=== PATIENT | male | born 1970 | race Caucasian/White ===

== ENCOUNTER 2017-04-02 19:45 | Emergency (ER) | payer MEDICAID ==
--- NOTE | 2017-04-02 19:50 | EDPHY ---
H & P Time Seen by Provider: 04/02/17 19:46 HPI/ROS: CHIEF COMPLAINT: Intoxication HISTORY OF PRESENT ILLNESS: The patient is a 39-year-old homeless man from [facility] for intoxication. He is unable to ambulate. 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 He denies other complaints. REVIEW OF SYSTEMS: Constitutional: denies: chills, fever, recent illness, recent injury EENTM: denies: blurred vision, double vision, nose congestion Respiratory: denies: cough, shortness of breath Cardiac: denies: chest pain, irregular heart rate, lightheadedness, palpitations Gastrointestinal/Abdominal: denies: abdominal pain, diarrhea, nausea, vomiting, blood streaked stools Genitourinary: denies: dysuria, frequency, hematuria, pain Musculoskeletal: denies: joint pain, muscle pain Skin: denies: lesions, rash, jaundice, bruising Neurological: denies: headache, numbness, paresthesia, tingling, dizziness, weakness Hematologic/Lymphatic: denies: blood clots, easy bleeding, easy bruising Immunologic/allergic: denies: HIV/AIDS, transplant Physical Exam General Appearance: WD/WN, no apparent distress, obtunded (But arousable with painful stimulation) EENT: PERRL/EOMI, normal ENT inspection, TMs normal, pharynx normal Neck: non-tender, full range of motion, supple, normal inspection Respiratory: chest non-tender, lungs clear, normal breath sounds Cardiac/Chest: normal peripheral pulses, regular rate, rhythm, P Peripheral Pulses: 2+: carotid (R), carotid (L), femoral (R), femoral (L), dorsalis-pedis (R), dorsalis-pedis (L) Abdomen: normal bowel sounds, non-tender, soft Extremities: normal range of motion, non-tender, normal inspection, normal capillary refill Neurological: calm, retail coverage merchandiser II-XII NML as tested. No: alert (Somnolent) Appearance: appropriate appearance, appropriate insight, neat, denies illness Behavior/Eye Contact/Speech: cooperative, decreased rate of speech Thoughts/Hallucinations: normal thought pattern, no apparent hallucination Skin: normal color, warm/dry Source: Patient, EMS Exam Limitations: Intoxication - Medical/Surgical History Hx Asthma: No Hx Chronic Respiratory Disease: No Hx Diabetes: No Hx Cardiac Disease: No Hx Renal Disease: No Hx Alcoholism: Yes - Family History Significant Family History: No pertinent family hx - Social History Alcohol Use: Heavy Drug Use: Marijuana Constitutional: Initial Vital Signs Temperature (C) 36.4 C 04/02/17 19:45 Heart Rate 88 04/02/17 19:45 Respiratory Rate 16 04/02/17 19:45 Blood Pressure 114/79 04/02/17 19:45 O2 Sat (%) 100 04/02/17 19:45 O2 Delivery Mode Room Air O2 (L/minute) 2 Allergies/Adverse Reactions: TD Allergy (Uncoded 04/02/17 19:55) Home Medications: Medication Instructions Recorded Hydrocodone Bit/Acetaminophen 1 each PO Q4-6PRN PRN #20 tablet 09/21/09 [Vicodin 5-500 Tablet] Paxil 09/21/09 Medical Decision Making ED Course/Re-evaluation: 11:00 p.m. the patient is increasingly sober. He is able to ambulate. Will discharge to the [facility]. Differential Diagnosis: Partial list of the Differential diagnosis considered include but were not limited to; intoxication, polysubstance abuse and although unlikely based on the history and physical exam, I also considered head injury, neck injury, infection, seizure, CVA. - Data Points Medications Given: Discontinued Medications Chlordiazepoxide (Librium 25 Mg Prepack#6) 1 btl TAKEHOME EDNOW ONE Stop: 04/02/17 22:38 Last Admin: 04/02/17 22:50 Dose: 1 btl Departure - Departure Disposition: Home, Routine, Self-Care Clinical Impression: Alcoholic intoxication Qualifiers: Complication of substance-induced condition: uncomplicated Qualified Code(s): F10.920 - Alcohol use, unspecified with intoxication, uncomplicated Alcohol dependence Qualifiers: Substance use status: uncomplicated Qualified Code(s): F10.20 - Alcohol dependence, uncomplicated Condition: Fair Instructions: Chlordiazepoxide/Clidinium (By mouth), Alcohol Intoxication (ED) , Abuse of Alcohol (ED) Additional Instructions: TO [facility]. STOP DRINKING ALCOHOL Referrals: NONE *PRIMARY CARE P,. [Primary Care Provider] - As per Instructions
[2017-04-02 19:55] VITALS: TEMP 97.5
[2017-04-02 21:49] VITALS: O2SAT 98
[2017-04-02] MEDS ORDERED: CHLORDIAZEPOXIDE 25MG PREPK#6 BTL TAKEHOME ONE (22:37)
[2017-04-02 23:09] VITALS: BP 138/79; PULSE 96; RESP 16
== END 2017-04-02 23:04 | disposition home or self-care (01) ==
LOC: EDUNIT#
DX: F10.20 Alcohol dependence, uncomplicated (principal)

== ENCOUNTER 2017-04-14 21:01 | Emergency (ER) | payer MEDICAID ==
[2017-04-14 21:31] LABS: PLATELET COUNT 187 10^3/uL (150-400)
--- NOTE | 2017-04-14 22:31 | EDPHY ---
General - History Smoking Status: Current every day smoker Narrative: 0200 care assumed from [facility] pending sober mental health evaluation. 0700 patient has been sleeping overnight. No issues during my care. Patient signed out to Dr. Pretty pending sober mental health evaluation. (Yosvany Lloyd) CHIEF COMPLAINT: M1 HISTORY OF PRESENT ILLNESS: Patient arrives by EMS on an M1 hold [place] [employer]. He was reportedly suicidal with a plan of trying to get the police department to shoot him. He was laying on the ground under a bridge when [place] Police was reportedly contacted for the patient's safety. On a well check, the patient reportedly became suicidal and aggressive toward the police and attempt to get them to shoot him. He says that he was feeling suicidal but not at this time. He says he has been depressed. He will not provide any other information to me. PSYCHIATRIC DIAGNOSES: Denies PRIOR PSYCHIATRIC EVALUATIONS: Denies M1/DETAINER: [place] [employer] REVIEW OF SYSTEMS: Ten systems reviewed and are negative unless otherwise noted in the HPI EXAMINATION General Appearance: Alert, no distress, unkempt Head: normocephalic, atraumatic Eyes: Pupils equal and round, no conjunctival pallor or injection ENT, Mouth: Mucous membranes moist Neck: Normal inspection, supple, non-tender Respiratory: No retractions or distress Cardiovascular: Regular rate. Good signs of perfusion Gastrointestinal: Abdomen is soft and nontender Back: non-tender, no bony abnormalities Neurological: A&O, nonfocal, normal gait Skin: Warm and dry, no rash Extremities: Nontender, no pedal edema Psychiatric: Depressed mood and flat affect. Admits to suicidal ideation earlier this evening. Denies suicidal ideation at this time. Admits to alcohol ingestion. Denies drug use. DIFFERENTIAL DIAGNOSES: Including but not limited to suicidal ideation, depression, alcohol dependency, alcohol intoxication, homelessness MDM: 9:30 p.m. M1 for suicidal ideation. Patient's plan was to get the police to shoot him. Patient denies any plan of harm at this time. Resting comfortably. Strong odor of alcohol. Laboratory studies pending. 9:50 p.m. Patient re-evaluated. Resting comfortably. CBC unremarkable. 10:30 p.m. CBC unremarkable. Chemistry unremarkable with exception of a markedly elevated serum alcohol level. The patient will be in this emergency department overnight as he cannot be cleared at this time due to alcohol level. 12:30 a.m. Patient still awaiting evaluation due to elevated blood alcohol level. 2:00 a.m. Patient resting comfortably. No acute distress. At this time I have discussed the case with Dr. Lloyd. He will assume care the patient this time. Patient is still pending evaluation pain SUPERVISION: Patient was independently examined, but I discussed the case with my secondary supervising physician Dr. Lloyd. (Aung Haynes) Medical Decision Making: I assumed care of the patient at 0700. The patient remained stable throughout my stay in the emergency department. His psychiatric disposition is still pending. He will be turned over to Dr. Salty Kuhn at shift change. (Mono Pretty) Care assumed 1445 from [facility], plan for evaluation when sober. 1527: had evaluation, not suicidal, cab to half-way, can do clinic intake tomorrow. Recommendation of Dr. Escalona and brand activation manager. (Salty Kuhn) I did not see this patient while he was in the emergency department. However his care was discussed with the PA while the patient was in the department. I agree with treatment plan and management (Josue Coleman) - Objective Vital Signs: Initial Vital Signs Temperature (C) 97.7 F 04/14/17 21:10 Heart Rate 84 04/14/17 21:10 Respiratory Rate 18 04/14/17 21:10 Blood Pressure 103/69 04/14/17 21:10 O2 Sat (%) 93 04/14/17 21:10 O2 Delivery Mode Room Air Allergies/Adverse Reactions: TD Allergy (Uncoded 04/14/17 21:24) Home Medications: Medication Instructions Recorded Hydrocodone Bit/Acetaminophen 1 each PO Q4-6PRN PRN #20 tablet 09/21/09 [Vicodin 5-500 Tablet] Paxil 09/21/09 Laboratory Results: Laboratory Results 04/14/17 21:20 04/14/17 21:20 04/15/17 07:20 Urine Opiates Screen NEGATIVE (NEGATIVE) Urine Barbiturates NEGATIVE (NEGATIVE) Ur Phencyclidine Scrn NEGATIVE (NEGATIVE) Ur Amphetamine Screen NEGATIVE (NEGATIVE) U Benzodiazepines Scrn NEGATIVE (NEGATIVE) Urine Cocaine Screen NEGATIVE (NEGATIVE) U Marijuana (THC) Screen NEGATIVE (NEGATIVE) Medications Given: Discontinued Medications Lorazepam (Ativan) 1 mg PO EDNOW ONE Stop: 04/15/17 14:06 Last Admin: 04/15/17 14:10 Dose: 1 mg Departure - Departure Disposition: Home, Routine, Self-Care Clinical Impression: Alcohol intoxication Qualifiers: Complication of substance-induced condition: uncomplicated Qualified Code(s): F10.920 - Alcohol use, unspecified with intoxication, uncomplicated Condition: Good Instructions: Alcohol Intoxication (ED) Referrals: Lalo Salazar MD [Medical Doctor] - As per Instructions [facility],. [Clinic] - As per Instructions [facility],. [Clinic] - As per Instructions
[2017-04-15] MEDS ORDERED: LORazepam 1 MG TAB PO ONE (14:05)
--- NOTE | 2017-04-15 14:59 | ASMTLACE ---
DILSHAD Acuity / Level of Answers: No Care: Did the patient have an inpatient admission? # of Emergency department Answers: 1-2 visits in the last 6 months Social determinants Answers: History of substance abuse (ETHO, street drugs, prescription drugs, etc.) Homelessness (street, snf) Mental health diagnosis (anxiety, depression, pers onality disorders, etc.) Lack of community resources and/or lack of social support (no pcp, lives alone, transportation, dawson d) Score: 14 Date Signed: 04/15/2017 02:59 PM Electronically Signed By:Shanel Zhu RN
[2017-04-15 15:56] VITALS: BP 164/89; PULSE 102; RESP 16; TEMP 98.4; O2SAT 94
== END 2017-04-15 15:54 | disposition home or self-care (01) ==
DX: F10.920 Alcohol use, unspecified with intoxication, uncomplicated (principal); F17.200 Nicotine dependence, unspecified, uncomplicated
CPT/HCPCS: 80305; G0480

== ENCOUNTER 2017-05-07 20:14 | Emergency (ER) | payer MEDICAID ==
--- NOTE | 2017-05-07 20:18 | EDPHY ---
H & P - Medical/Surgical History Hx Asthma: No Hx Chronic Respiratory Disease: No Hx Diabetes: No Hx Cardiac Disease: No Hx Renal Disease: No Hx Cirrhosis: No Hx Alcoholism: Yes Hx HIV/AIDS: No Hx Splenectomy or Spleen Trauma: No Other PMH: BROKEN JAW, ETOH ABUSE , CHI - Social History Smoking Status: Current every day smoker Time Seen by Provider: 05/07/17 20:18 Constitutional: Initial Vital Signs Temperature (C) 36.5 C 05/07/17 20:25 Heart Rate 91 05/07/17 20:25 Respiratory Rate 20 05/07/17 20:25 Blood Pressure 109/66 05/07/17 20:25 O2 Sat (%) 94 05/07/17 20:25 O2 Delivery Mode Room Air Allergies/Adverse Reactions: TD Allergy (Uncoded 04/14/17 21:24) Home Medications: Medication Instructions Recorded Hydrocodone Bit/Acetaminophen 1 each PO Q4-6PRN PRN #20 tablet 09/21/09 [Vicodin 5-500 Tablet] Paxil 09/21/09 Medical Decision Making ED Course/Re-evaluation: CHIEF COMPLAINT: Alcohol intoxication. HISTORY OF PRESENT ILLNESS: The patient is a chronic alcoholic living on the street. Patient drinks on a daily basis and obtains whatever alcohol is available. Patient was found by bystanders who called EMS system. Patient has had multiple ER visits over the last several years for the same complaint. Patient denies any injuries denies loss of consciousness denies any recent trauma. Patient denies co-ingestion. Patient denies suicidal or homicidal behavior. REVIEW OF SYSTEMS: A 10 point review of systems was performed and is negative with the exception of the elements mentioned in the history of present illness. PHYSICAL EXAM: General Appearance: Alert, well hydrated, appropriate, and non-toxic appearing. Head: Atraumatic without scalp tenderness or obvious injury Eyes: Pupils equal, round, reactive to light and accommodation, EOMI, no trauma , no injection. Ears: Clear bilaterally, no perforation, normal landmarks Nose: Atraumatic, no rhinorrhea, clear. Throat: There is no erythema or exudates, no lesions, normal tonsils, mucus membranes moist. Neck: Supple, 2+ carotid upstroke, nontender, no lymphadenopathy. Respiratory: No retractions, no distress, no wheezes, and no accessory muscle use. Lungs are clear to auscultation bilaterally. Cardiovascular: Regular rate and rhythm, no murmurs, rubs, or gallops. Bilateral carotid, radial, dorsalis pedis, and posterior tibial pulses intact. Good capillary refill all extremities. Gastrointestinal: Abdomen is soft, nontender, non-distended, no masses, no rebound, no guarding, no peritoneal signs. Musculoskeletal: Normal active ROM of all extremities, atraumatic. Neurological: Alert, appropriate, and interactive. The patient has normal DTRs and non-focal cranial nerves, motor, sensory, and cerebellar exam. Skin: No rashes, good turgor, no nodules on palpation. PAST MEDICAL HISTORY: Alcohol abuse PAST SURGICAL HISTORY: Noncontributory SOCIAL HISTORY: Single, unemployed, homeless, abuses alcohol drugs and tobacco DIFFERENTIAL DIAGNOSIS: MEDICAL DECISION MAKING: I serially examined this patient since the patient's arrival here in the emergency department. The patient continues to become more and more sober with each examination. I serially questioned the patient and the patient's story given initially has not changed. The patient still denies any trauma, any head injury, and any illicit drug use. At this point, the patient is walking the department freely and is clinically sober. We're discharging the patient to the [facility] in stable condition. (Mata Blum) Other Provider: 2200 care assumed by me from Dr. Blum. Patient is here intoxicated. He needs to clear more of his alcohol before he is cleared for the [facility]. 2355 Patient is now awake and appropriate. Ambulating unassisted to the bathroom. No current complaints. Patient is tolerating oral fluids. Patient is ready for [facility] to the [facility]. (Yosvany Lloyd) - Data Points Medications Given: Discontinued Medications Chlordiazepoxide (Librium 25 Mg Prepack#6) 1 btl TAKEHOME EDNOW ONE Stop: 05/07/17 23:57 Last Admin: 05/07/17 23:58 Dose: 1 btl Departure - Departure Disposition: Home, Routine, Self-Care Clinical Impression: Alcoholic intoxication Qualifiers: Complication of substance-induced condition: uncomplicated Qualified Code(s): F10.920 - Alcohol use, unspecified with intoxication, uncomplicated Alcohol dependence Qualifiers: Substance use status: uncomplicated Qualified Code(s): F10.20 - Alcohol dependence, uncomplicated Condition: Fair Instructions: Alcohol Intoxication (ED), Alcohol Dependence (ED) Referrals: NONE *PRIMARY CARE P,. [Primary Care Provider] - As per Instructions Report Scribed for: Mata Blum Report Scribed by: Sonal Schulz Date of Report: 05/07/17 Time of Report: 20:21
[2017-05-07 20:28] VITALS: O2SAT 94
[2017-05-07 23:47] VITALS: BP 137/92; PULSE 107; RESP 18; TEMP 98.2
[2017-05-07] MEDS ORDERED: CHLORDIAZEPOXIDE 25MG PREPK#6 BTL TAKEHOME ONE (23:56)
== END 2017-05-08 00:08 | disposition home or self-care (01) ==
LOC: EDUNIT#
DX: F10.920 Alcohol use, unspecified with intoxication, uncomplicated (principal); F17.200 Nicotine dependence, unspecified, uncomplicated

== ENCOUNTER 2017-06-14 00:37 | Emergency (ER) | payer MEDICAID ==
[2017-06-14] MEDS ORDERED: chlordiazePOXIDE 25 MG CAP PO ONE ×2 (01:03→01:14)
[2017-06-14] MEDS ORDERED: PERMETHRIN 5% 60 GM CREAM TP ONE (01:11)
[2017-06-14] MEDS ORDERED: chlordiazePOXIDE 25 MG CAP ONE (01:13)
--- NOTE | 2017-06-14 01:44 | EDPHY ---
H & P Stated Complaint: etoh withdrawal Time Seen by Provider: 06/14/17 00:55 HPI/ROS: HPI The patient presents with concern for alcohol withdrawal, brought in by ambulance after he approached them in a parking lot. The patient's last drink was at noon any drinks about a pt of hard alcohol a day. He is feeling anxious though denies any tremor, vomiting, dizziness, seizures. He has been feeling this way for the last several hours. He said he stopped drinking because he ran out of money to purchase alcohol. He denies any injuries. He has [facility] before and is willing to return. He also complains of a rash she has had for the last several weeks. He was previously seen and started on prednisone without any improvement in this rash. He notices it mostly at his waistline, arms, back. It is very pruritic.. REVIEW OF SYSTEMS Constitutional: No fever, no chills. Eyes: No discharge. ENT: No sore throat. Cardiovascular: No chest pain, no palpitations. Respiratory: No cough, no shortness of breath. Gastrointestinal: No abdominal pain, no vomiting. Genitourinary: No hematuria. Musculoskeletal: No back pain. Skin: No rashes. Neurological: No headache. PMHx: Longstanding history of alcohol abuse Soc Hx: Homeless, alcohol abuse PHYSICAL General Appearance: Alert, no distress, slightly anxious Eyes: Pupils equal and round no pallor or injection ENT, Mouth: Mucous membranes moist Respiratory: There are no retractions, lungs are clear to auscultation Cardiovascular: Regular rate and rhythm Gastrointestinal: Abdomen is soft and non-tender, no masses, bowel sounds normal Neurological: A&O, moves all extremities, no tremor Skin: Warm and dry, upper extremities, torso, lower abdomen with erythematous macular blanching non tender rash Musculoskeletal: Neck is supple non tender Extremities: symmetrical, full range of motion Psychiatric: Patient is oriented X 3, there is no agitation Source: Patient - Personal History Current Tetanus Diphtheria and Acellular Pertussis (TDAP): Yes - Medical/Surgical History Hx Asthma: No Hx Chronic Respiratory Disease: No Hx Diabetes: No Hx Cardiac Disease: No Hx Renal Disease: No Hx Cirrhosis: No Hx Alcoholism: Yes Hx HIV/AIDS: No Hx Splenectomy or Spleen Trauma: No Other PMH: BROKEN JAW, ETOH ABUSE , CHI - Social History Smoking Status: Current every day smoker Constitutional: Initial Vital Signs Temperature (C) 36.6 C 06/14/17 00:42 Heart Rate 94 06/14/17 00:42 Respiratory Rate 16 06/14/17 00:42 Blood Pressure 131/87 H 06/14/17 00:42 O2 Sat (%) 94 06/14/17 00:42 O2 Delivery Mode Room Air Allergies/Adverse Reactions: No Known Allergies Allergy (Unverified 06/14/17 00:42) Home Medications: Medication Instructions Recorded NK [No Known Home Meds] 06/14/17 Medical Decision Making Differential Diagnosis: This is a 46-year-old homeless man who presents after approaching and EMS vehicle asking for help with alcohol withdrawal. On arrival here he has normal vital signs, he says he feels anxious and tremulous, however does not have a tremor on exam. He also has a diffuse rash which was previously treated with prednisone without any improvement in his symptoms. This rash could be scabies given that he is homeless. I will treat him with permethrin here. I will give him a dose of Librium. He will not be able to go to the [facility] given his diagnosis of scabies. I do not feel he is in severe enough withdrawal to require admission to the hospital. He will be discharged. - Data Points Medications Given: Discontinued Medications Chlordiazepoxide HCl (Librium) 25 mg PO EDNOW ONE Stop: 06/14/17 01:04 Last Admin: 06/14/17 01:16 Dose: Not Given Chlordiazepoxide HCl (Librium) 50 mg PO EDNOW ONE Stop: 06/14/17 01:15 Last Admin: 06/14/17 01:15 Dose: 50 mg Permethrin (Elimite 5%) 1 etienne TP EDNOW ONE Stop: 06/14/17 01:12 Last Admin: 06/14/17 01:36 Dose: 5 % Departure - Departure Disposition: Home, Routine, Self-Care Clinical Impression: Skin rash Alcohol withdrawal Qualifiers: Complication of substance-induced condition: uncomplicated Qualified Code(s): F10.230 - Alcohol dependence with withdrawal, uncomplicated Condition: Good Instructions: Scabies (ED), Alcohol Withdrawal (ED) Referrals: [facility],. [Clinic] - As per Instructions
[2017-06-14 02:23] VITALS: BP 119/88; PULSE 98; RESP 18; TEMP 98.4; O2SAT 97
== END 2017-06-14 02:23 | disposition home or self-care (01) ==
LOC: EDUNIT#
DX: F10.230 Alcohol dependence with withdrawal, uncomplicated (principal); R21 Rash and other nonspecific skin eruption; F17.200 Nicotine dependence, unspecified, uncomplicated

== ENCOUNTER 2017-07-09 02:02 | Emergency (ER) | payer SELFPAY ==
--- NOTE | 2017-07-09 02:08 | EDPHY ---
H & P Source: Patient, Police - Medical/Surgical History Hx Asthma: No Hx Chronic Respiratory Disease: No Hx Diabetes: No Hx Cardiac Disease: No Hx Renal Disease: No Hx Cirrhosis: No Hx Alcoholism: Yes Hx HIV/AIDS: No Hx Splenectomy or Spleen Trauma: No Other PMH: BROKEN JAW, ETOH ABUSE , CHI - Social History Smoking Status: Current every day smoker Time Seen by Provider: 07/09/17 02:08 HPI/ROS: HPI CHIEF COMPLAINT: Alcohol intoxication HISTORY OF PRESENT ILLNESS: This patient is a 46-year-old male presents emergency room by police for acute alcohol intoxication. The initially were trying to bring the patient to the [facility], however when the patient found this he started saying that he was suicidal and sick at all. He presents to the emergency room by police intoxicated with alcohol. The police have placed him on M1 hold [employer] [facility]. Past Medical History: Longstanding history of alcoholism Past Surgical History: No recent surgery Social History: Daily alcohol use, homeless Family History: Noncontributory ROS REVIEW OF SYSTEMS: A comprehensive 10 point review of systems is otherwise negative aside from elements mentioned in the history of present illness. Exam Constitutional intoxicated, smells of alcohol triage nursing summary reviewed , vital signs reviewed, awake/alert. Eyes normal conjunctivae and sclera, EOMI, PERRLA. HENT normal inspection, atraumatic, moist mucus membranes, no epistaxis, neck supple/ no meningismus, no raccoon eyes. Respiratory clear to auscultation bilaterally, normal breath sounds, no respiratory distress, no wheezing. Cardiovascular rate normal, regular rhythm, no murmur, no edema, distal pulses normal. Gastrointestinal soft, non-tender, no rebound, no guarding, normal bowel sounds, no distension, no pulsatile mass. Genitourinary no CVA tenderness. Musculoskeletal no midline vertebral tenderness, full range of motion, no calf swelling, no tenderness of extremities, no meningismus, good pulses, neurovascularly intact. Skin pink, warm, & dry, no rash, skin atraumatic. Neurologic awake, alert and oriented x 3, AAOx3, moves all 4 extremities equally, motor intact, sensory intact, CN II-XII intact, normal cerebellar, normal vision, normal speech. Psychiatric alcohol intoxication Heme/Lymph/Immune no lymphadenopathy. Differential Diagnosis: Includes but is not limited to in a particular order homelessness, alcohol intoxication, vague suicidal ideation Medical Decision Making: Plan for this patient blood draw for medical clearance check alcohol level. Patient is on M1 hold by [facility]. Re-evaluation: 0243: Serum alcohol 452. 0336: Patient placed on CIWA protocol given his significant alcohol use, and acute alcohol intoxication as he metabolize alcohol there is a chance for alcohol withdrawal. 0711AM: Patient signed over to Dr. Meek 7am shift-change (Alberto Lee) Constitutional: Initial Vital Signs Temperature (C) 36.4 C 07/09/17 02:05 Heart Rate 95 07/09/17 02:05 Respiratory Rate 18 07/09/17 02:05 Blood Pressure 126/97 H 07/09/17 02:05 O2 Sat (%) 96 07/09/17 02:05 O2 Delivery Mode Room Air Allergies/Adverse Reactions: No Known Allergies Allergy (Unverified 06/14/17 00:42) Home Medications: Medication Instructions Recorded NK [No Known Home Meds] 06/14/17 Medical Decision Making ED Course/Re-evaluation: 8:00 a.m. the patient is up and awake. He is clinically sober. He tells me he is not suicidal but just saying that to avoid going to the [facility]. I will lift his hold. It was placed while he was intoxicated. The patient does not wish to stop drinking and does not wish to go to Addiction recovery. Will discharge him. (Santiago Meek) Differential Diagnosis: Partial list of the Differential diagnosis considered include but were not limited to; intoxication, suicidal and although unlikely based on the history and physical exam, I also considered head injury, infection. (Santiago Meek) - Data Points Laboratory Results: Laboratory Results 07/09/17 02:07 07/09/17 02:07 07/09/17 07/09/17 07/09/17 02:15 02:07 02:07 WBC 4.58 10^3/uL 10^3/uL (3.80-9.50) RBC 4.12 10^6/uL L 10^6/uL (4.40-6.38) Hgb 14.5 g/dL g/dL (13.7-17.5) Hct 42.0 % % (40.0-51.0) MCV 101.9 fL H fL (81.5-99.8) MCH 35.2 pg H pg (27.9-34.1) MCHC 34.5 g/dL g/dL (32.4-36.7) RDW 14.9 % % (11.5-15.2) Plt Count 187 10^3/uL 10^3/uL (150-400) MPV 8.6 fL L fL (8.7-11.7) Neut % (Auto) 46.5 % % (39.3-74.2) Lymph % (Auto) 29.3 % % (15.0-45.0) [place] % (Auto) 14.4 % H % (4.5-13.0) Eos % (Auto) 7.9 % H % (0.6-7.6) Baso % (Auto) 1.7 % % (0.3-1.7) Nucleat RBC Rel Count 0.0 % % (0.0-0.2) Absolute Neuts (auto) 2.13 10^3/uL 10^3/uL (1.70-6.50) Absolute Lymphs (auto) 1.34 10^3/uL 10^3/uL (1.00-3.00) Absolute Monos (auto) 0.66 10^3/uL 10^3/uL (0.30-0.80) Absolute Eos (auto) 0.36 10^3/uL 10^3/uL (0.03-0.40) Absolute Basos (auto) 0.08 10^3/uL 10^3/uL (0.02-0.10) Absolute Nucleated RBC 0.00 10^3/uL 10^3/uL (0-0.01) Immature Gran % 0.2 % % (0.0-1.1) Immature Gran # 0.01 10^3/uL 10^3/uL (0.00-0.10) Sodium 149 mEq/L H mEq/L (135-145) Potassium 3.8 mEq/L mEq/L (3.5-5.2) Chloride 105 mEq/L mEq/L (97-110) Carbon Dioxide 29 mEq/l mEq/l (22-31) Anion Gap 15 mEq/L mEq/L (8-16) BUN 6 mg/dL L mg/dL (7-23) Creatinine 0.8 mg/dL mg/dL (0.7-1.3) Estimated GFR > 60 Glucose 113 mg/dL H mg/dL (70-100) Calcium 8.2 mg/dL L mg/dL (8.5-10.4) Urine Opiates Screen NEGATIVE (NEGATIVE) Urine Barbiturates NEGATIVE (NEGATIVE) Ur Phencyclidine Scrn NEGATIVE (NEGATIVE) Ur Amphetamine Screen NEGATIVE (NEGATIVE) U Benzodiazepines Scrn NEGATIVE (NEGATIVE) Urine Cocaine Screen NEGATIVE (NEGATIVE) U Marijuana (THC) Screen NON-NEGATIVE H (NEGATIVE) Ethyl Alcohol 452 mg/dL H* mg/dL (0-10) Departure - Departure Disposition: Home, Routine, Self-Care Clinical Impression: Alcohol intoxication Qualifiers: Complication of substance-induced condition: uncomplicated Qualified Code(s): F10.920 - Alcohol use, unspecified with intoxication, uncomplicated Condition: Good Instructions: Alcohol Intoxication (ED), Abuse of Alcohol (ED) Referrals: NONE *PRIMARY CARE P,. [Primary Care Provider] - As per Instructions
[2017-07-09 02:25] LABS: PLATELET COUNT 187 10^3/uL (150-400)
[2017-07-09] MEDS ORDERED: LORazepam 2 MG/ML INJ IVP PRN (02:43)
[2017-07-09] MEDS ORDERED: LORazepam 1 MG TAB PO PRN (02:43)
[2017-07-09] MEDS ORDERED: EPINEPHrine RACEMIC INH 0.5 ML DEYVIAL IH ONE (06:13)
[2017-07-09 07:58] VITALS: BP 121/84
== END 2017-07-09 08:34 | disposition home or self-care (01) ==
DX: F10.920 Alcohol use, unspecified with intoxication, uncomplicated (principal); F17.200 Nicotine dependence, unspecified, uncomplicated
CPT/HCPCS: 80305; G0480